=== PATIENT | female | born 1935 | race Caucasian/White ===

== ENCOUNTER 2016-09-26 08:47 | Emergency (ER) | payer MEDICARE ==
[2016-09-26 13:09] VITALS: BP 152/87
--- NOTE | 2016-09-26 13:21 | Emergency Department Report ---
ED Extremity Problem HPI - General Chief complaint: Extremity Problem,Nontraumatic Stated complaint: LFT/RT LEG PAIN Time Seen by Provider: 09/26/16 11:29 Source: patient, family Mode of arrival: Ambulatory Limitations: Physical Limitation - History of Present Illness Initial comments: 80-year-old female with a past medical history of arthritis, Parkinson's, GERD, and hypertension presents to the hospital complains of ongoing left leg pain. Patient has had this pain for last 2-3 weeks. Patient states that the pain extends to the left hip and extends down to left leg. Patient feels like her left gluteal/buttock muscles become harder time and maybe she's having spasms. Patient does have Parkinson's and has almost constant involuntary movements. Pain is currently rated 2/10 in intensity and gets better with Aleve. At its worst it is rated 10/10 intensity and worse with movement. This She denies any recent fall, trauma, fever, dysuria, weakness, chest pain, shortness of breath, or edema. She had a outpatient vascular arterial ultrasound performed on the sixth with unknown results. PMD: Dr. Christian Boswell - Related Data Home Medications Medication Instructions Recorded Confirmed Last Taken LORazepam [Ativan] 0.5 mg PO Q6H PRN 02/25/13 05/16/14 05/15/14 Nitroglycerin [Nitrostat] 0.4 mg SL Q5M 02/25/13 05/16/14 04/25/14 Previous Rx's Medication Instructions Recorded Last Taken Type traMADol [Ultram] 50 mg PO Q6HR PRN #10 tablet 05/16/14 Unknown Rx Famotidine [Pepcid] 20 mg PO BID tablet 03/22/15 Unknown Rx Ipratropium/Albuterol Sulfate 1 spray IH QID PRN #1 aer.w.adap 03/22/15 Unknown Rx [Combivent Respimat] Levofloxacin [Levaquin TAB] 500 mg PO QDAY #7 tablet 03/22/15 Unknown Rx Metoprolol [Lopressor TAB] 25 mg PO BID tablet 03/22/15 Unknown Rx methylPREDNISolone [Medrol Dose 4 mg PO QAM #1 pack 03/22/15 Unknown Rx Shmuel] Allergies Allergy/AdvReac Type Severity Reaction Status Date / Time cephalexin monohydrate Allergy Rash Verified 09/08/13 11:24 [From Keflex] codeine Allergy Nausea Verified 05/16/14 06:16 fluoxetine HCl [From Prozac] Allergy Vomiting Verified 05/16/14 06:16 hydrochlorothiazide Allergy Unknown Verified 05/16/14 06:16 sertraline HCl [From Zoloft] Allergy Unknown Verified 05/16/14 06:16 Sulfa (Sulfonamide Allergy Rash Verified 09/08/13 11:24 Antibiotics) ED Review of Systems ROS: Stated complaint: LFT/RT LEG PAIN Other details as noted in HPI Comment: All other systems reviewed and negative Other: Constitutional: No fevers chills Eyes: No eye pain visual changes ENT: No ear pain or throat pain Neck: Denies pain Respiratory: Denies cough wheezing shortness of breath Cardiovascular: Denies chest pain, palpitations, syncope GI: Denies abdominal pain, nausea, vomiting, diarrhea : Denies dysuria Musculoskeletal: as per hpi, denies back pain Skin: Denies rash, lesions, erythema Neurologic: Denies headache, numbness, weakness Psychiatric: Denies suicidal ideation, hallucinations ED Past Medical Hx - Past Medical History Previous Medical History?: Yes Hx Hypertension: Yes Hx CVA: No Hx Heart Attack/AMI: No Hx GERD: Yes Hx Arthritis: Yes Hx Seizures: No Hx Dementia: No Hx HIV: No Additional medical history: parkinsons,. "heart palpitations" - Surgical History Past Surgical History?: Yes Hx Breast Surgery: Yes (bilat. mastectomy) Additional Surgical History: x 3. hernia repair - Social History Smoking Status: Never Smoker Substance Use Type: Prescribed - Medications Home Medications: Home Medications Medication Instructions Recorded Confirmed Last Taken Type LORazepam [Ativan] 0.5 mg PO Q6H PRN 02/25/13 05/16/14 05/15/14 History Nitroglycerin [Nitrostat] 0.4 mg SL Q5M 02/25/13 05/16/14 04/25/14 History traMADol [Ultram] 50 mg PO Q6HR PRN #10 tablet 05/16/14 Unknown Rx Famotidine [Pepcid] 20 mg PO BID tablet 03/22/15 Unknown Rx Ipratropium/Albuterol Sulfate 1 spray IH QID PRN #1 aer.w.adap 03/22/15 Unknown Rx [Combivent Respimat] Levofloxacin [Levaquin TAB] 500 mg PO QDAY #7 tablet 03/22/15 Unknown Rx Metoprolol [Lopressor TAB] 25 mg PO BID tablet 03/22/15 Unknown Rx methylPREDNISolone [Medrol Dose 4 mg PO QAM #1 pack 03/22/15 Unknown Rx Shmuel] ED Physical Exam - General Limitations: Physical Limitation - Other Other exam information: General: No limitations, patient is alert in no acute distress Head exam: Atraumatic, normocephalic Eyes exam: Normal appearance, pupils equal reactive to light, extraocular movements intact ENT: Moist mucous membrane, normal oropharynx Neck exam: Normal inspection, full range of motion Respiratory exam: Clear to auscultation bilateral, no wheezes, rales, crackles Cardiovascular: Normal rate and rhythm, normal heart sounds Abdomen: Soft, nondistended, and nontender, with normal bowel sounds, no rebound, or guarding Extremity: Full range of motion passive and active without pain. No deformity. Minimal tenderness to left gluteal muscle. tenderness, edema, 2+ DP pulses equal bilaterally Back: Normal Inspection, full range of motion, no tenderness Neurologic: Alert, oriented x3, cranial nerves intact, no motor or sensory deficit, involuntary tremors noted Psychiatric: normal affect, normal mood Skin: Warm, dry, intact ED Course Vital Signs 09/26/16 09/26/16 09/26/16 09:08 11:03 11:04 Temperature 98 F Pulse Rate 99 H Respiratory 20 Rate Blood Pressure 183/97 169/79 Blood Pressure [Left] O2 Sat by Pulse 99 95 98 Oximetry 09/26/16 09/26/16 09/26/16 11:08 11:15 13:08 Temperature Pulse Rate Respiratory 20 Rate Blood Pressure 159/73 Blood Pressure 152/87 [Left] O2 Sat by Pulse 98 98 Oximetry - Reevaluation(s) Reevaluation #1: 09/26/16 13:20 Patient declined pain medication ED since pain is only 2/10 in intensity - Consultations Consultation #1: 09/26/16 13:00 Case was discussed with nurse practitioner in Dr. Christian Boswell's office. Patient had a vascular ultrasound (initially I thought it might have been venous). Clinically patient has good peripheral pulses ED Medical Decision Making - Medical Decision Making Patient denied any acute trauma and has full passive and active range of motion without pain therefore x-rays were not performed. Patient did not require any treatment in the ED. She declined any stronger prescriptions then her current Aleve. She'll be discharged to follow-up with her primary care doctor for continued management - Differential Diagnosis arthritis, sciatica, herniated disc, muscle spasms, Parkinson's Critical Care Time: No Critical care attestation.: If time is entered above; I have spent that time in minutes in the direct care of this critically ill patient, excluding procedure time. ED Disposition Clinical Impression: Leg pain, left Disposition: DISCHARGED TO HOME OR SELFCARE Is pt being admited?: No Does the pt Need Aspirin: No Condition: Stable Instructions: Arthralgia (ED) Additional Instructions: Continue your Aleve and take it with food to prevent stomach upset. Continue outpatient workup and evaluation. Return if symptoms worsen. Referrals: CHRISTIAN BOSWELL MD [Staff Physician] - 2-3 Days Time of Disposition: 13:22
== END 2016-09-26 13:34 | disposition home or self-care (01) ==
LOC: ED 08:47
DX: M79.605 Pain in left leg (principal); K21.9 Gastro-esophageal reflux disease without esophagitis; G20 Parkinson's disease; I10 Essential (primary) hypertension; M19.90 Unspecified osteoarthritis, unspecified site; Z88.8 Allergy status to other drugs, medicaments and biological substances; Z88.2 Allergy status to sulfonamides
CPT/HCPCS: 99282

== ENCOUNTER 2017-05-29 06:31 | Day surgery (SDC) | payer MEDICARE ==
[2017-05-29 08:52] LABS: Hematocrit 37.5 % (30.3-42.9); Hemoglobin 12.8 gm/dl (10.1-14.3); Mean Corpuscular HGB Conc 34 % (30-34); Mean Corpuscular Hemoglobin 29 pg (28-32); Mean Corpuscular Volume 84 fl (79-97); Platelet Count 327 K/mm3 (140-440); Red Blood Count 4.46 M/mm3 (3.65-5.03); Red Cell Distribution Width 14.8 % (13.2-15.2); White Blood Count 4.8 K/mm3 (4.5-11.0)
[2017-05-29] MEDS ORDERED: SUBLIMAZE IV NR ×2 (09:00→11:00)
[2017-05-29] MEDS ORDERED: VERSED IV NR ×2 (09:00→11:00)
[2017-05-29 09:08] LABS: INR 1.05 (0.87-1.13)
[2017-05-29 09:09] LABS: Partial Thromboplastin Time 37.5 Sec. (24.2-36.6)
[2017-05-29 10:25] LABS: Basophils % (Manual) 0 % (0.0-1.8); Blastocytes % (Manual) 0 %; Diff Status Complete; Platelet Estimate Consistent w Auto; RBC Morphology Normal
--- NOTE | 2017-05-29 10:40 | Cat Scan Report ---
CT BONE MARROW ASPIRATION History: Monoclonal gammopathy of unknown significance. Description of procedure: Informed consent was obtained. Sterile technique was utilized. 1% lidocaine for skin anesthesia. Moderate sedation was accomplished with Versed and fentanyl. The patient was sedated for 15 minutes. Independent cardiorespiratory monitoring by RN. Intraobserver time was [address] guidance, a 10-gauge introducer needle was advanced within the right posterior iliac bone. 4 bone marrow aspirations and one 11-gauge bone core were obtained. No complications. Impression: Successful CT-guided bone marrow aspiration and biopsy.
[2017-05-29 11:05] VITALS: BP 125/78
[2017-06-09 13:06] LABS: CYTOMETRY FIRST MARKER SCANNED INTO MED REC
[2017-06-09 13:07] LABS: FLOW CYTOMETRY >16 SCANNED INTO MED REC
== END 2017-05-29 11:45 | disposition home or self-care (01) ==
LOC: CATHLABREC 06:31 → EDSTATUS 08:30 → CATHLABREC 11:45
DX: D47.2 Monoclonal gammopathy (principal); R63.4 Abnormal weight loss
CPT/HCPCS: 36415; 38221; 85007; 85025; 85097; 85610; 85730; 88161; 88305; 88311; 88313; G0364; J2250; J3010; 88184; 88185; 88230; 88291

== ENCOUNTER 2017-11-20 09:11 | Outpatient (CLI) | payer MEDICARE ==
[2017-11-20 09:52] LABS: Blood Urea Nitrogen 8 mg/dL (7-17)
--- NOTE | 2017-11-20 21:43 | Cat Scan Report ---
FINAL REPORT PROCEDURE: CT ABDOMEN PELVIS W CON TECHNIQUE: Computerized axial tomography of the abdomen and pelvis was performed after the IV injection of iodinated nonionic contrast. HISTORY: LYMPHOMA FLU AFTER TREATMENT COMPARISON: No prior studies are available for comparison. FINDINGS: Liver, spleen, pancreas and bilateral adrenal glands are within normal limits. An in homogeneously enhancing lesion is noted in the upper portion right kidney measuring about 1.5 centimeters. Left kidney demonstrates a parapelvic cystic lesion measuring 2.2 x 1.7 centimeters without any evidence of enhancement. There is no obstructive uropathy. Urinary bladder is partially filled with normal outlines. Aorta is of normal caliber. There is no free fluid or free air. Gallbladder is unremarkable. Small bowel loops are within normal limits. Moderate degree residual stool is noted. Appendix is not distinctly visualized. There are no inflammatory changes in the right lower quadrant. Mild degree degenerative changes are noted involving the lumbar spine. IMPRESSION: An in homogeneously enhancing lesion is noted in the right kidney measuring about 1.5 centimeters. A malignant neoplasm cannot be excluded. Ultrasound with Doppler and/or MRI pre and post contrast are recommended. Otherwise no acute intra-abdominal or pelvic pathology.
== END 2017-11-20 09:12 | disposition home or self-care (01) ==
LOC: CT 09:11
DX: C85.80 Other specified types of non-Hodgkin lymphoma, unspecified site (principal); N28.89 Other specified disorders of kidney and ureter; M47.896 Other spondylosis, lumbar region
CPT/HCPCS: 36415; 74177; 82565; 84520; Q9967